=== PATIENT | female | born 1985 | race Caucasian/White ===

== ENCOUNTER 2024-03-16 08:42 | Outpatient (CLI) | payer OTHER, SELFPAY | END 2024-03-16 08:43 | disposition home or self-care (01) | LOC: FRMREF 08:44 | PROVIDERS: Visit Provider Obstetrics & Gynecology | DX: Z01.419 Encounter for gynecological examination (general) (routine) without abnormal findings (principal); Z13.6 Encounter for screening for cardiovascular disorders; Z13.1 Encounter for screening for diabetes mellitus | CPT/HCPCS: 80061; 82947 ==